=== PATIENT | male | born 1950 | race Caucasian/White ===

== ENCOUNTER → 2020-04-14 11:40 | Outpatient (CLI) | payer MEDICARE, SELFPAY ==
--- NOTE | ~2020-04-14 | XR_ITS ---
EXAMINATION: XR TMJ BI DATE: 04/14/2020 12:09 INDICATION: Left temporomandibular joint pain. TECHNIQUE: 7 views of the temporomandibular joints including open and closed mouth views were obtaine d. COMPARISON: None. FINDINGS: The mandibular condyles are normal in morphology. There is normal anterior translation of t he mandibular condyles in the open-mouth position. IMPRESSION: 1. Normal temporomandibular joints. Reviewed, dictated and finalized at location B. ER [employer] [employer]
== END ==
PROVIDERS: PCP Nurse Practitioner Family; Visit Provider Nurse Practitioner Family
DX: M26.609 Unspecified temporomandibular joint disorder, unspecified side (principal)
CPT/HCPCS: 70330

== ENCOUNTER 2020-07-14 14:21 | Emergency (ER) | payer MEDICARE, SELFPAY ==
--- NOTE | 2020-07-14 14:23 | ED.GENADULT ---
HPI - General Adult General Chief complaint: Ear Stated complaint: ear pain/neck pain Time Seen by Provider: 07/14/20 14:23 Source: patient Mode of arrival: ambulatory Limitations: no limitations History of Present Illness HPI narrative: 70-year-old male patient presents to the [facility] with complaints of bilateral ear pain for the past 2 to 3 days. Patient states he has been feeling slightly dizzy. Patient states he is also had some pain to his neck but this is not necessarily new and does have chronic neck issues and wishes to the doctors have been wanting to operate on his neck a couple of times and he has denied them. Patient states he has tried taking 1 meclizine yesterday and tried some nasal spray yesterday as well. Denies fevers, body aches or chills. Related Data Home Medications Medication Instructions Recorded Confirmed atenolol 50 mg PO DAILY 07/14/20 07/14/20 atorvastatin 20 mg PO DAILY 07/14/20 07/14/20 cyclobenzaprine 10 mg PO PRN PRN 07/14/20 07/14/20 meloxicam 7.5 mg PO DAILY 07/14/20 07/14/20 omeprazole 10 mg PO DAILY 07/14/20 07/14/20 tamsulosin 0.4 mg PO DAILY 07/14/20 07/14/20 Allergies Allergy/AdvReac Type Severity Reaction Status Date / Time zolpidem Allergy Unknown Unknown Verified 07/14/20 14:32 codeine AdvReac Intermediate DIZZINESS, Verified 07/14/20 14:32 ABD PAIN Review of Systems Review of Systems: Narrative: CONSTITUTIONAL: Denies fever, chills, or sweats. EYES: Denies visual changes, redness, or discharge. ENT: Positive rhinorrhea, congestion, denies sore throat, positive bilateral otalgia. CARDIOVASCULAR: Denies chest pain, palpitations, or edema. RESPIRATORY: Denies cough or dyspnea. GASTROINTESTINAL: Denies abdominal pain, nausea, vomiting, or diarrhea. GENITOURINARY: Denies dysuria or hematuria. SKIN: Denies rash or itching. MUSCULOSKELETAL: Denies back pain, joint pain, or myalgia. NEUROLOGIC: Denies headache, numbness, or weakness. PSYCHIATRIC: Denies anxiety or depression. [facility] Past Medical History Medical History (Updated 07/14/20 @ 14:42 by ANSON Andrew) GERD (gastroesophageal reflux disease) Hard of hearing Wears hearing aids Hypercholesterolemia Hypertension Kidney stone Seasonal allergies Surgical History Surgical History (Updated 07/14/20 @ 14:25 by ANSON Andrew) H/O Spinal surgery History of orthopedic surgery Leg Comments At the time of my signature I agree with nursing past medical history, surgical, social, and family history. There is no relevant family history pertinent to the presenting complaint. Exam Narrative: Exam Narrative: GENERAL: Well-appearing, well-nourished, and in no acute distress. HEAD: Normocephalic, atraumatic. EYES: PERRLA and EOMI. ENT: Nares with erythema and edema noted bilaterally, no rhinorrhea or epistaxis. Mucous membranes moist. Bilateral TMs do have some fluid behind it. No erythema no foreign bodies to the canal. Posterior pharynx no erythema, tonsil enlargement, exudates or lesions present. NECK: Supple. No lymphadenopathy CHEST: Clear to auscultation. No respiratory distress. HEART: Regular rate and rhythm. No murmur heard. Normal peripheral pulses. ABDOMEN: Soft, nontender, nondistended, normal active bowel sounds. EXTREMITIES: Normal range of motion. No edema. SKIN: Warm, dry, no rash. NEURO: No focal deficits. Alert and oriented x3. Course Vital Signs Vital signs: Vital Signs Temperature 36.4 C 07/14/20 14:28 Pulse Rate 82 07/14/20 14:28 Respiratory Rate 12 07/14/20 14:28 Blood Pressure 151/95 H 07/14/20 14:28 Pulse Oximetry 99 07/14/20 14:28 Temperature 36.4 C 07/14/20 14:28 Pulse Rate 82 07/14/20 14:28 Respiratory Rate 12 07/14/20 14:28 Blood Pressure 151/95 H 07/14/20 14:28 Pulse Oximetry 99 07/14/20 14:28 Vital signs reviewed The patient has been informed that they may have pre-hypertension or Hypertension based on a BP reading in the d
[2020-07-14 14:28] VITALS: BP 151/95; PULSE 82; RESP 12; TEMP 36.4; O2SAT 99
== END 2020-07-14 14:45 | disposition home or self-care (01) ==
PROVIDERS: Emergency Provider Nurse Practitioner Family; PCP Family Medicine
DX: H73.893 Other specified disorders of tympanic membrane, bilateral (principal); J30.9 Allergic rhinitis, unspecified; K21.9 Gastro-esophageal reflux disease without esophagitis; E78.00 Pure hypercholesterolemia, unspecified; I10 Essential (primary) hypertension
CPT/HCPCS: 99213; G0463

== ENCOUNTER 2020-07-31 16:41 | Emergency (ER) | payer MEDICARE, SELFPAY ==
[2020-07-31 16:50] VITALS: BP 167/90; PULSE 73; RESP 16; TEMP 36.7; O2SAT 97
--- NOTE | 2020-07-31 17:04 | ED.EAR ---
HPI - Ear Problem General Chief complaint: Ear Stated complaint: right ear pain Time Seen by Provider: 07/31/20 16:55 Source: patient, family, RN notes reviewed and old records reviewed Mode of arrival: ambulatory Limitations: no limitations History of Present Illness HPI Narrative: Patient presents today complaining of right ear pain x2 days. He was seen approximately 2 weeks ago at [facility] and diagnosed with a serous effusion and instructed to take an antihistamine and use Flonase. States symptoms improved for short period of time, but returned very sharply 2 days ago. Patient believes if he does not have an ear infection, that this pain may be due to the bulging disks in his neck. He is scheduled in 2 days to get injections in his neck. At times, this neck pain does cause pain in his face and had as well as his neck so pain in his ear would not be unheard of. He currently rates his pain 7/10 and describes the pain is very sharp and shooting. He has been using meloxicam as prescribed by his doctor for pain. MD Complaint: ear pain Related Data Home Medications Medication Instructions Recorded Confirmed atenolol 50 mg PO DAILY 07/14/20 07/31/20 atorvastatin 20 mg PO DAILY 07/14/20 07/31/20 cyclobenzaprine 10 mg PO PRN PRN 07/14/20 07/31/20 meloxicam 7.5 mg PO DAILY 07/14/20 07/31/20 omeprazole 10 mg PO DAILY 07/14/20 07/31/20 tamsulosin 0.4 mg PO DAILY 07/14/20 07/31/20 Allergies Allergy/AdvReac Type Severity Reaction Status Date / Time No Known Allergies Allergy Verified 07/31/20 16:56 Review of Systems Review of Systems: Narrative: CONSTITUTIONAL: Denies body aches, fever, chills, or sweats. EYES: Denies visual changes, redness, or discharge. ENT: Denies rhinorrhea, congestion, sore throat. + Right ear pain CARDIOVASCULAR: Denies chest pain, palpitations, or edema. RESPIRATORY: Denies cough or dyspnea. GASTROINTESTINAL: Denies abdominal pain, nausea, vomiting, or diarrhea. GENITOURINARY: Denies dysuria or hematuria. SKIN: Denies rash, itching, or wounds. MUSCULOSKELETAL: Denies back pain, joint pain, or myalgia. NEUROLOGIC: Denies headache, numbness, tingling, or weakness. PSYCH: Denies depression or anxiety. [facility] Past Medical History Medical History GERD (gastroesophageal reflux disease) Hard of hearing Wears hearing aids Hypercholesterolemia Hypertension Kidney stone Seasonal allergies Surgical History Surgical History H/O Spinal surgery History of orthopedic surgery Leg Social History Social History Gender identity (if verbalized by the patient): Male Comments At time of signature, I have reviewed and agree with nursing past medical, surgical, social and family history unless otherwise noted. Please see nursing chart for further information. There is no relevant family history pertinent to the presenting complaint Exam Narrative: Exam Narrative: GENERAL: Well-appearing, well-nourished, and in acute pain distress intermittently with shooting pains. HEAD: Normocephalic, atraumatic. EYES: EOMI. No redness or drainage. Conjunctivae normal. ENT: Mucous membranes pink and moist. Nares clear. No rhinorrhea. TMs normal bilaterally. Right ear canal is normal. No movement tenderness or tragal tenderness noted. Bilateral canals and TMs are cool in appearance. Face is nontender. Patient does jump when shooting pains occur. Throat normal. Uvula midline. NECK: Normal AROM. Supple. No lymphadenopathy. CHEST: No respiratory distress. EXTREMITIES: Normal range of motion. No edema. SKIN: Warm, dry, no rash. Capillary refill normal. Normal skin turgor. NEURO: No focal deficits. Alert and oriented x3. Gait steady. PSYCH: Normal affect. No signs of depression or anxiety. Course Vital Signs Vital signs: Janee
== END 2020-07-31 17:12 | disposition home or self-care (01) ==
PROVIDERS: Emergency Provider Nurse Practitioner; PCP Family Medicine
DX: H92.01 Otalgia, right ear (principal); K21.9 Gastro-esophageal reflux disease without esophagitis; E78.00 Pure hypercholesterolemia, unspecified; I10 Essential (primary) hypertension
CPT/HCPCS: 99211; G0463

== ENCOUNTER 2022-03-12 17:15 | Emergency (ER) | payer MEDICARE, SELFPAY ==
--- NOTE | ~2022-03-12 | XR_ITS ---
XR knee RT 3V DATE: 03/12/2022 18:05 INDICATION: Fall. Bilateral knee injury, pain TECHNIQUE: [place], AP and crosstable lateral views COMPARISON: None FINDINGS: There is diffuse osteopenia. There is mild periarticular spurring of the patella and mild t o moderate loss of height at the medial compartment joint space. These findings are consistent with o steoarthritis. No fracture or dislocation, joint effusion, radiopaque intra-articular loose body or chondrocalcinosi s or joint effusion is detected. No periosteal reaction or bone destruction. IMPRESSION: Mild osteoarthritis Reviewed, dictated and finalized at location A. [employer] IMPRESSION: Mild osteoarthritis
--- NOTE | ~2022-03-12 | XR_ITS ---
XR knee LT 3V DATE: 03/12/2022 18:05 INDICATION: Fall. Bilateral knee injury, pain TECHNIQUE: [place], AP and crosstable lateral views of left knee COMPARISON: None FINDINGS: No fracture or dislocation or joint effusion is evident. No periosteal reaction or bone fariba truction. There is mild periarticular spurring of the patella mild loss of medial compartment joint space heigh t. No radiopaque intra-articular loose body or chondrocalcinosis. IMPRESSION: Mild osteoarthritis Reviewed, dictated and finalized at location A. [employer] IMPRESSION: Mild osteoarthritis
[2022-03-12 17:43] VITALS: BP 164/97; PULSE 116; RESP 16; O2SAT 97
--- NOTE | 2022-03-12 18:25 | ED.GENADULT ---
HPI - General Adult General Chief complaint: Extremity Injury, Lower Stated complaint: rt/lt knee injury, fall Source: patient and family Mode of arrival: ambulatory Limitations: no limitations History of Present Illness HPI narrative: Patient presents for evaluation of bilateral knee pain since approximately 1030 this morning. Patient states that he is blind and is able to ambulate without the cane that he has at home. This morning he got turned around and fell down six carpeted steps. He did not hit his head nor did he have a loss of consciousness. He states he has experienced pain in both knees, rating pain in the right knee 2/10 severity, and the left knee 4/10 in severity. Pain does not radiate. Pain is worse with movement. He took some NSAIDs and a muscle relaxer which seemed to help. He states pain has improved since that time. No other injuries. Related Data Home Medications Medication Instructions Recorded Confirmed atenolol 50 mg tablet 50 mg PO DAILY 07/14/20 03/12/22 atorvastatin 20 mg tablet 20 mg PO DAILY 07/14/20 03/12/22 meloxicam 7.5 mg tablet 7.5 mg PO DAILY 07/14/20 03/12/22 omeprazole 10 mg capsule,delayed 10 mg PO DAILY 07/14/20 03/12/22 release tamsulosin 0.4 mg capsule 0.4 mg PO DAILY 07/14/20 03/12/22 Allergies Allergy/AdvReac Type Severity Reaction Status Date / Time No Known Allergies Allergy Verified 02/20/21 15:56 Review of Systems Review of Systems: CONSTITUTIONAL: Denies fever, chills, or sweats. EYES: Denies visual changes, redness, or discharge. ENT: Denies rhinorrhea, congestion, sore throat, or otalgia. CARDIOVASCULAR: Denies chest pain, palpitations, or edema. RESPIRATORY: Denies cough or dyspnea. GASTROINTESTINAL: Denies abdominal pain, nausea, vomiting, or diarrhea. GENITOURINARY: Denies dysuria or hematuria. SKIN: Denies rash or itching. MUSCULOSKELETAL: Reports bilateral knee pain. NEUROLOGIC: Denies headache, numbness, dizziness, or weakness. PSYCHIATRIC: Denies anxiety or depression. [facility] Past Medical History Medical History GERD (gastroesophageal reflux disease) Hard of hearing Wears hearing aids Hypercholesterolemia Hypertension Kidney stone Seasonal allergies Surgical History Surgical History H/O Spinal surgery History of orthopedic surgery Leg Family History Family History Mother Family history non-contributory Social History Social History Smoking status: Never smoker Alcohol intake: never Gender identity (if verbalized by the patient): Male Sexual Orientation (if Verbalized by the Patient): Straight or Heterosexual Spiritual care concerns: No Exam Narrative: GENERAL: Well-appearing, well-nourished, and in no acute distress. HEAD: Normocephalic, atraumatic. EYES: PERRLA and EOMI. ENT: Nares clear, no rhinorrhea or epistaxis. Mucous membranes moist. Oropharynx without tonsillar hypertrophy exudate or other lesions. Bilateral TMs pearly benitez nonbulging NECK: Supple. No adenopathy or masses. No carotid bruits or JVD CHEST: Clear to auscultation. No respiratory distress. No wheezes rales or rhonchi HEART: Regular rate and rhythm. No murmur heard. Normal peripheral pulses. ABDOMEN: Soft, nontender, nondistended, normal active bowel sounds. EXTREMITIES: Mild tenderness in the anterior aspect of bilateral knees. There is no crepitus or deformity. Full range of motion intact. SKIN: Warm, dry, no rash. NEURO: No focal deficits. Alert and oriented x3. PSYCH: Normal mood and affect. Course Course Emergency Course: This is a 71-year-old male who presented for evaluation of injuries to both knees. X-rays were obtained were negative for fracture. There is evidence of osteoarthritis and o
== END 2022-03-12 18:27 | disposition home or self-care (01) ==
PROVIDERS: Emergency Provider Nurse Practitioner; PCP Family Medicine
DX: S80.02XA Contusion of left knee, initial encounter (principal); S80.01XA Contusion of right knee, initial encounter; M17.0 Bilateral primary osteoarthritis of knee; M85.862 Other specified disorders of bone density and structure, left lower leg; M85.861 Other specified disorders of bone density and structure, right lower leg; I10 Essential (primary) hypertension; Z79.1 Long term (current) use of non-steroidal anti-inflammatories (NSAID); W10.9XXA Fall (on) (from) unspecified stairs and steps, initial encounter
CPT/HCPCS: 73562; 99214; G0463